=== PATIENT | male | born 1955 | race Hispanic/Latino ===

== ENCOUNTER 2024-08-23 10:18 | Emergency (ER) | payer BC, MEDICARE ==
[~2024-08-23] VITALS: Ht 185.4 cm; Wt 152.4 kg
[2024-08-23] MEDS ORDERED: ROSUVASTATIN CA20 MG (10:42)
[2024-08-23] MEDS ORDERED: AMLODIPINE BESY10 MG PO (10:42)
[2024-08-23] MEDS ORDERED: NEURONTIN300 MG PO (10:42)
[2024-08-23] MEDS: CEPHALEXIN MONOHYDRATE 250 MG CAP PO SCH (11:00)
[2024-08-23] MEDS: TRAMADOL HCL 50 MG TAB PO ONE (11:00)
[2024-08-23] MEDS: TETANUS/DIPHTHERIA TOX ADULT 0.5 ML SYR IM ONE (11:02)
[2024-08-23] MEDS: BACITRACIN ZINC 0.9GM TP ONE (11:02)
[2024-08-23] MEDS: LIDOCAINE HCL 1% LOCAL INJ 20 ML VIAL INJ ONE (11:03)
[2024-08-23 12:31] VITALS: PULSE 80; RESP 18; TEMP 98.7; O2SAT 94
[2024-08-23] MEDS ORDERED: ULTRAM 50MG50 MG PO (12:34)
[2024-08-23] MEDS ORDERED: CEPHALEXIN500 MG PO (12:35)
== END 2024-08-23 12:43 | disposition home or self-care (01) ==
LOC: FSED 10:23
DX: S51.011A Laceration without foreign body of right elbow, initial encounter (principal); M25.521 Pain in right elbow; M25.511 Pain in right shoulder; S20.211A Contusion of right front wall of thorax, initial encounter; S60.221A Contusion of right hand, initial encounter; W01.0XXA Fall on same level from slipping, tripping and stumbling without subsequent striking against object, initial encounter; Y93.01 Activity, walking, marching and hiking; Y92.89 Other specified places as the place of occurrence of the external cause; I25.10 Atherosclerotic heart disease of native coronary artery without angina pectoris; I10 Essential (primary) hypertension
CPT/HCPCS: 71250; 90471; 90714; 96372; 99284

== ENCOUNTER 2024-08-24 15:11 | Emergency (ER) | payer BC, MEDICARE ==
[~2024-08-24] VITALS: Ht 185.4 cm; Wt 152.4 kg
[~2024-08-24 15:11] MED LIST: AMLODIPINE BESY10 MG PO; CEPHALEXIN500 MG PO; NEURONTIN300 MG PO; ROSUVASTATIN CA20 MG; ULTRAM 50MG50 MG PO
[2024-08-24] MEDS: HYDROCODONE/APAP 5MG-325MG TAB PO ONE (16:20)
[2024-08-24] MEDS: KETOROLAC TROMETHAMINE 30 MG/ML VIAL IM STA (16:21)
[2024-08-24 19:45] VITALS: PULSE 81; RESP 18; TEMP 98.1; O2SAT 96
== END 2024-08-24 20:20 | disposition home or self-care (01) ==
LOC: ER 15:56
DX: S20.211A Contusion of right front wall of thorax, initial encounter (principal); R07.89 Other chest pain; W01.0XXA Fall on same level from slipping, tripping and stumbling without subsequent striking against object, initial encounter; Y93.01 Activity, walking, marching and hiking; Y92.89 Other specified places as the place of occurrence of the external cause; I10 Essential (primary) hypertension; G62.9 Polyneuropathy, unspecified
CPT/HCPCS: 36415; 84484; 99284; J1885